=== PATIENT | female | born 1965 | race Caucasian/White ===

== ENCOUNTER 2018-01-12 14:23 | Emergency (ER) | payer OTHER ==
[2018-01-12 14:43] VITALS: BP 134/91; PULSE 103; TEMP 97.9; BMI 26.2
[2018-01-12] MEDS ORDERED: KETOROLAC TROMETHAMINE 60 MG/2 ML VIAL IM ONE (14:59)
[2018-01-12] MEDS ORDERED: KETOROLAC TROMETHAMINE 60 MG/2 ML VIAL ONE (14:59)
--- NOTE | 2018-01-12 15:05 | PDOC ---
History of Present Illness - General Chief Complaint: Back Pain Stated Complaint: PAIN DOWN RT LEG Time Seen by Provider: 01/12/18 14:46 History Source: Patient Exam Limitations: No Limitations - History of Present Illness Initial Comments: 01/12/18 15:00 52 yr female with c/o low back to right buttock and thigh pain for 2 days. Pt denies trauma no abd pain neg nvd. no pmhx. Past History - Past Medical History Allergies/Adverse Reactions: Allergies Allergy/AdvReac Type Severity Reaction Status Date / Time No Known Allergies Allergy Verified 01/12/18 14:38 Home Medications: Ambulatory Orders Cyclobenzaprine HCl [Flexeril -] 10 mg PO TID PRN #21 tablet 01/12/18 Naproxen [Naprosyn -] 500 mg PO BID #14 tablet 01/12/18 COPD: No - Suicide/Smoking/Psychosocial Hx Smoking History: Never smoked Review of Systems - Review of Systems Able to Perform ROS?: Yes Is the patient limited [place] proficient: No Constitutional: No: Symptoms Reported HEENTM: No: Symptoms Reported Respiratory: No: Symptoms reported Cardiac (ROS): No: Symptoms Reported ABD/GI: No: Symptoms Reported : No: Symptoms Reported Musculoskeletal: Yes: Symptoms Reported *Physical Exam - Vital Signs Last Vital Signs Temp Pulse Resp BP Pulse Ox 97.9 F 103 H 20 134/91 99 01/12/18 14:35 01/12/18 14:35 01/12/18 14:35 01/12/18 14:35 01/12/18 14:35 - Physical Exam General Appearance: Yes: Nourished, Appropriately Dressed HEENT: positive: EOMI, BRIA Respiratory/Chest: positive: Lungs Clear, Normal Breath Sounds Cardiovascular: positive: Regular Rhythm, Regular Rate Gastrointestinal/Abdominal: positive: Normal Bowel Sounds, Soft. negative: Tender Musculoskeletal: positive: Normal Inspection, Decreased Range of Motion, Other ( neg spinal tenderness , pos SLR right side ). negative: CVA Tenderness (R), CVA Tenderness (L), Vertebral Tenderness Extremity: positive: Normal Capillary Refill, Normal Inspection, Normal Range of Motion. negative: Tender, Calf Tenderness, Erythema Integumentary: positive: Normal Color, Dry, Warm Neurologic: positive: Fully Oriented, Alert, Normal Mood/Affect, Normal Response , Motor Strength 5/5 Moderate Sedation - Procedure Monitoring Vital Signs: Procedure Monitoring Vital Signs Temperature 97.9 F 01/12/18 14:35 Pulse Rate 103 H 01/12/18 14:35 Respiratory Rate 20 01/12/18 14:35 Blood Pressure 134/91 01/12/18 14:35 O2 Sat by Pulse Oximetry (%) 99 01/12/18 14:35 Medical Decision Making - Medical Decision Making 01/12/18 15:01 cc: low back to right buttock anterior thigh pain worse with walking no fever no urine or bowel complaints no saddle anesthesia pain reproduced with SLR and with sitting to standing will give toradol now *DC/Admit/Observation/Transfer Diagnosis at time of Disposition: Sciatica, right side - Discharge Dispostion Disposition: HOME Condition at time of disposition: Good - Prescriptions Prescriptions: Cyclobenzaprine HCl [Flexeril -] 10 mg PO TID PRN #21 tablet PRN Reason: Muscle Spasms Naproxen [Naprosyn -] 500 mg PO BID #14 tablet - Referrals Referrals: Ken Ivan MD [Staff Physician] - - Patient Instructions Printed Discharge Instructions: DI for Sciatica Additional Instructions: avoid heavy lifting or bending apply ice every 2hrs for 15 minutes to low back then apply a heating pad for 30 minutes, repeat this every few hours take the medications as prescribed follow with your doctor or with the back doctor in 2-3 days for follow up Return to ER for any worsening symptoms - Post Discharge Activity
== END 2018-01-12 15:25 | disposition home or self-care (01) ==
LOC: JERFT 14:23 → JER 14:23 → JERFT 15:25
DX: M54.41 Lumbago with sciatica, right side (principal)
CPT/HCPCS: 99281-25

== ENCOUNTER 2018-03-02 11:18 | Emergency (ER) | payer SELFPAY ==
[2018-03-02 11:28] VITALS: TEMP 97.8; BMI 26.9
--- NOTE | 2018-03-02 14:32 | PDOC ---
History of Present Illness - General Chief Complaint: Lightheaded Stated Complaint: DIZZY Time Seen by Provider: 03/02/18 14:11 - History of Present Illness Initial Comments: Flaca Soliz is an otherwise healthy 52yo woman who presents reporting dizziness, nausea and vomiting since yesterday. She reports that she first started feeling dizzy yesterday when standing quickly. Initially she thought she would improve with time, but the dizziness is worse today. Earlier today, she had an episode of nausea and vomiting after standing. She reports that when laying still, she feels well, but she becomes dizzy whenever she stands up. She describes the sensation as the world spinning, like feeling drunk. She denies any fevers, chills, focal weakness, numbness/tingling, recent congestion, ear pain, or hearing changes. She has never had anything similar happen in the past. She denies any other complaints currently and feels well other than the dizziness. Past History - Past Medical History Allergies/Adverse Reactions: Allergies Allergy/AdvReac Type Severity Reaction Status Date / Time No Known Allergies Allergy Verified 03/02/18 11:27 Home Medications: Ambulatory Orders Meclizine HCl [Antivert -] 25 mg PO TID PRN #21 tablet 03/02/18 COPD: No - Suicide/Smoking/Psychosocial Hx Smoking History: Never smoked Review of Systems - Review of Systems Comments:: General: No fevers, no chills, no weight or appetite change, no malaise HEENT: No changes in vision, no changes in hearing, no congestion, no sore throat CV: No chest pain, no palpitations, no LE edema Pulm: No SOB, no cough, no wheezing GI: + nausea or vomiting. No change in bowel habits, no melena : No frequency, no urgency, no dysuria Musc: No back pain, no joint swelling, no recent injury Skin: No rash, no lesions, no erythema Endo: No excessive thirst, no heat/cold intolerance Heme: No unusual bruising or bleeding, no swollen glands Neuro: No syncope, no numbness/tingling, no focal weakness. +vertigo Vasc: No claudication Psych: No recent change in mood, no SI or HI *Physical Exam - Vital Signs Last Vital Signs Temp Pulse Resp BP Pulse Ox 97.8 F 86 18 122/86 97 03/02/18 11:25 03/02/18 11:25 03/02/18 11:25 03/02/18 11:25 03/02/18 11:25 - Physical Exam Comments: General: Comfortable, no acute distress HEENT: PERRL, EOMI, MMM, voice normal, normal neck ROM, no LAD Cards: RRR, no murmur appreciated Pulm: Comfortable on room air, clear to auscultation bilaterally Abd: Soft, nontender, nondistended Ext: Atraumatic. No LE edema. ROM intact. Strength 5/5 and equal bilaterally Vasc: Extremities WWP. Palpable radial and pedal pulses bilaterally Skin: Normal color, no rashes or lesions Neuro: A&Ox3, CN grossly intact, normal speech, motor/sensory grossly intact and symmetric Psych: Mood appropriate to situation Moderate Sedation - Procedure Monitoring Vital Signs: Procedure Monitoring Vital Signs Temperature 97.8 F 03/02/18 11:25 Pulse Rate 86 03/02/18 11:25 Respiratory Rate 18 03/02/18 11:25 Blood Pressure 122/86 03/02/18 11:25 O2 Sat by Pulse Oximetry (%) 97 03/02/18 11:25 ED Treatment Course - LABORATORY CBC & Chemistry Diagram: 03/02/18 14:50 03/02/18 14:50 Medical Decision Making - Medical Decision Making 03/02/18 14:25 Flaca Soliz is an otherwise healthy 52yo woman who presents with vertigo and accompanying nausea/vomiting since yesterday. - Could be benign positional vertigo, labyrinthitis, inner ear infection. Infections casuses less likely as pt has no recent respiratory symptoms, ear pain, fevers, chills. - Low suspicion for cardiac causes, but will check EKG and trop to rule out. - Pt does not endorse low fluid intake or polyuria recently, but will check UA to r/o UTI or dehydration. Will also check orthostatics 03/02/18 15:33 - Labs reviewed, unremarkable, trop negative - Feels slightly improved after meclizine. Has received about 1/2L fluids - UA pending 03/02/18 16:08 - UA w/o concerning abnormalities - Ms Brady Soliz feels significantly improved, ready to go home - Able to ambulate without difficulty - Discussed home care, follow up, and return precautions with Ms Oakley and her daughter at length. Both state understanding and agreement. Discussed with Dr Alfaro. Diane Garcia PGY1 *DC/Admit/Observation/Transfer Diagnosis at time of Disposition: Vertigo - Discharge Dispostion Condition at time of disposition: Stable - Referrals Referrals: Brigido Araujo DO [Staff Physician] - Eleno Leavitt MD [Staff Physician] - - Patient Instructions Printed Discharge Instructions: DI for Vertigo Additional Instructions: Discharge Instructions: - You were seen in the emergency department for vertigo (sensation of spinning) along with nausea and vomiting. - You had blood tests and a urine test. These were all normal. Your physical exam was also normal. - You received a medication for vertigo as well as as IV fluids with some improvement in your symptoms. Home Care: - Make sure you are drinking plenty of fluids to stay hydrated. - You have been prescribed a medication called Meclizine that may be taken as directed to help with your symptoms - If you are feeling dizzy, stand up slowly and hold onto something for balance until you feel steady. Do not risk falling. Follow Up: - Make an appointment to see your primary doctor for follow up within the next week - You have been referred to Dr Araujo (neurology) and Dr Leavitt (Ear, nose, and throat) for follow up. You should try to see both doctors within the next week or sooner if your symptoms persist. - Seek immediate medical care if your symptoms worsen, you have severe nausea/ vomiting that prevents you from eating, you have neurological changes (one- sided weakness, numbness, tingling, changes in your speech, confusion), or you develop fevers to 101F or higher. Instrucciones de descarga: - En el servicio de urgencias lo vieron por vrtigo (sensacin de girar) junto con nuseas y vmitos. - Le hicieron anlisis de elizabeth y un anlisis de orina. Todos estos mirtha normales. Caro examen fsico tambin fue normal. - Recibi un medicamento para el vrtigo, as florecita tambin lquidos por va intravenosa, con cierta mejora en jone sntomas. Cuidados en el hogar: - Asegrate de beber muchos lquidos para mantenerte hidratado. - Le marcos recetado un medicamento llamado Meclizine que puede tomarse segn las indicaciones para ayudarlo con jone sntomas. - Si se siente mareado, levntese lentamente y sostenga algo para mantener el equilibrio hasta que se sienta estable. No te arriesgues a caer. Seguir: - Krystal melissa say para darren a caro mdico de cabecera para el seguimiento dentro de la prxima semana. - Se le ledesma remitido al Dr. Araujo (neurologa) y al Dr. Leavitt (odo, nariz y garganta) para caro seguimiento. Debe intentar darren a ambos mdicos dentro de la prxima semana o antes si jone sntomas persisten. - Busque atencin mdica inmediata si jone sntomas empeoran, tiene nuseas / vmitos severos que le impiden comer, tiene cambios neurolgicos (debilidad unilateral, entumecimiento, hormigueo, cambios en el habla, confusin) o si presenta fiebre hasta 101F. o mas alto. Print Language: LAO - Post Discharge Activity
[2018-03-02] MEDS ORDERED: MECLIZINE HCL 25 MG TABLET (FP) PO ONE (14:45)
[2018-03-02] MEDS ORDERED: SODIUM CHLORIDE 0.9% 500 ML INFUS.BAG IV ONE (14:45)
[2018-03-02] MEDS ORDERED: MECLIZINE HCL 25 MG TABLET (FP) ONE (14:53)
[2018-03-02 15:11] LABS: BASO % 0.7 % (0-2.0); EOS % 1.8 % (0-4.5); HEMATOCRIT 36.9 % (32.4-45.2); HEMOGLOBIN 12.7 GM/dL (10.7-15.3); LYMPH % 22.3 % (8-40); MCH 30.2 pg (25.7-33.7); MCHC 34.4 g/dl (32.0-36.0); MEAN CELL VOLUME 87.7 fl (80-96); MEAN PLT VOLUME 8.2 fl (7.5-11.1); MONO % 8.7 % (3.8-10.2); NEUT % 66.5 % (42.8-82.8); PLATELET COUNT 329 K/MM3 (134-434); RBC 4.21 M/mm3 (3.60-5.2); RDW 13.6 % (11.6-15.6); WHITE BLOOD COUNT 6.3 K/mm3 (4.0-10.0)
[2018-03-02 15:15] LABS: ALBUMIN 3.8 g/dl (3.4-5.0); ALK PHOS 82 U/L (45-117); ANION GAP 8 MMOL/L (8-16); BILIRUBIN,TOTAL 0.3 mg/dL (0.2-1); BLOOD UREA NITROGEN 11 mg/dL (7-18); CALCIUM 8.7 mg/dL (8.5-10.1); CHLORIDE 106 mmol/L (98-107); CO2 26 mmol/L (21-32); CREATININE 0.7 mg/dL (0.55-1.3); GLUCOSE,RANDOM 90 mg/dL (74-106); MAGNESIUM 2.2 mg/dL (1.8-2.4); PHOSPHOROUS 3.6 mg/dL (2.5-4.9); POTASSIUM 4.1 mmol/L (3.5-5.1); SGOT/AST 20 U/L (15-37); SGPT/ALT 32 U/L (13-61); SODIUM 140 mmol/L (136-145); TOT PROT 7.8 g/dl (6.4-8.2)
[2018-03-02 15:50] LABS: URINE APPEARANCE CLEAR; URINE BILIRUBIN NEGATIVE (<2.0 mg/dL); URINE COLOR YELLOW; URINE GLUCOSE (UA) NEGATIVE (NEGATIVE); URINE KETONE NEGATIVE (NEGATIVE); URINE LEUK ESTERASE NEGATIVE (NEGATIVE); URINE NITRITE NEGATIVE (NEGATIVE); URINE PROTEIN NEGATIVE (NEGATIVE); URINE UROBILINOGEN 4.0 E.U/dl mg/dL (0.2-1.0)
[2018-03-02 16:14] VITALS: BP 158/90; PULSE 65
--- NOTE | 2018-03-02 16:14 | PDOC ---
Attending Attestation - Resident Resident Name: Diane Garcia - ED Attending Attestation I have performed the following: I have examined & evaluated the patient, The case was reviewed & discussed with the resident, I agree w/resident's findings & plan, Exceptions are as noted - HPI HPI: 03/02/18 16:14 The patient is a 52 year old female, with no past medical history, who presents to the emergency department with 2 days of dizziness. As per patient, she began feeling dizzy (room-spinning) yesterday when she stood up quickly. The sensation persisted until today. She endorses an episode of nausea and vomiting , though this has subsided. Pt still reports intermittent room-spinning dizziness with certain positions. Her symptoms are alleviated with lying flat and worsened when standing up. Pt denies BRASWELL. Denies neck pain. Denies weakness/ numbness in any extremity. She denies recent fevers, chills, or headache. She denies recent diarrhea or constipation. She denies recent dysuria, frequency, urgency or hematuria. She denies recent chest pain or shortness of breath. Allergies: NKDA - Physicial Exam PE: 03/02/18 16:15 "GENERAL: Awake, alert, and fully oriented, in no acute distress. HEAD: No signs of trauma EYES: PERRLA, EOMI, sclera anicteric, conjunctiva clear ENT: Auricles normal inspection, hearing grossly normal, nares patent, oropharynx clear without exudates. Moist mucosa NECK: Nontender, no stepoffs, Normal ROM, supple, no lymphadenopathy, JVD, or masses LUNGS: Breath sounds equal, clear to auscultation bilaterally. No wheezes, and no crackles HEART: Regular rate and rhythm, normal S1 and S2, no murmurs, rubs or gallops ABDOMEN: Soft, nontender, normoactive bowel sounds. No guarding, no rebound. No masses EXTREMITIES: Normal range of motion, no edema. No clubbing or cyanosis. No cords, erythema, or tenderness NEUROLOGICAL: Cranial nerves II through XII intact. 5/5 strength and sensation in all extremities, Normal speech, normal gait, normal cerebellar function SKIN: Warm, Dry, normal turgor, no rashes or lesions noted. - Medical Decision Making 03/02/18 16:15 52 F with positional room-spinning dizziness. Suspect peripheral vertigo. No neuro deficits on exam currently to suggest CVA, and pt has no CVA risk factors. - Labs - Meclizine 03/02/18 16:16 Labs wnl Pt reassessed after meclizine Pt now with resolution of dizziness. Able to ambulate with steady gait. Pt is well appearing, with normal vitals. Clinically stable for DC at this time. I discussed the physical exam findings, ancillary test results and final diagnoses with the patient. I answered all of the patient's questions. The patient was satisfied with the care received and felt comfortable with the discharge plan and treatment plan. The patient agrees to follow up with the primary care physician within 24-72 hours.
--- NOTE | 2018-03-02 18:29 | EKG ---
Test Reason : Blood Pressure : / mmHG Vent. Rate : 079 BPM Atrial Rate : 079 BPM P-R Int : 148 ms QRS Dur : 070 ms QT Int : 398 ms P-R-T Axes : 061 012 043 degrees QTc Int : 456 ms NORMAL SINUS RHYTHM NO PREVIOUS ECGS AVAILABLE Confirmed by RALF PATEL MD ([id number]) on 03/02/2018 6:29:15 PM Referred By: Confirmed By:RALF PATEL MD
== END 2018-03-02 16:29 | disposition home or self-care (01) ==
LOC: JER 11:18
DX: R42 Dizziness and giddiness (principal)
CPT/HCPCS: 36415; 80053; 81003; 83735; 84100; 84484; 85025; 93005; 93010; 99283-25

== ENCOUNTER 2021-01-28 10:32 | Emergency (ER) | payer SELFPAY ==
[2021-01-28 10:43] VITALS: BP 157/97; TEMP 97.9; BMI 28.3
[2021-01-28 12:22] VITALS: PULSE 84
== END 2021-01-28 12:27 | disposition home or self-care (01) ==
LOC: JER 10:32 → JERFT 10:32
PROC: 3E023GC Introduction of Other Therapeutic Substance into Muscle, Percutaneous Approach (ICD-10-PCS; principal; 2021-01-28)
DX: L50.9 Urticaria, unspecified (principal)
CPT/HCPCS: 99284-25